=== PATIENT | female | born 1950 | race Caucasian/White ===

== ENCOUNTER → 2016-05-25 | Outpatient (CLI) | payer OTHER, MEDICARE ==
[2016-05-25 09:54] LABS: CHLORIDE,CL 105 mmol/L (98-110); SODIUM,NA 136 mmol/L (136-146)
== END ==
LOC: MW.CHFP 08:57
PROVIDERS: ATTEND Nurse Practitioner Family
DX: Z00.00 Encounter for general adult medical examination without abnormal findings (principal); E78.00 Pure hypercholesterolemia, unspecified; I10 Essential (primary) hypertension
CPT/HCPCS: 36415; 80053; 80061; 84443

== ENCOUNTER → 2016-07-06 | Outpatient (CLI) | payer OTHER, MEDICARE ==
--- NOTE | 2016-07-22 14:11 | US ---
EXAMINATION: Left digital diagnostic mammogram and targeted ultrasound. HISTORY: Abnormal screening. A comparison report port was obtained dated 07/09/2012, however no image s were provided. FINDINGS: Spot magnification images were obtained in the CC and MLO projections of the left breast. These demonstrates several coarse dystrophic calcifications within the upper outer left breast. Th ere is a clip noted within this region. Targeted ultrasound evaluation of this area demonstrates no suspicious mass or fluid collection. No abnormal color Doppler flow is noted. The previous report mentioned this area as being sampled. Ther e are, however, no comparisons to demonstrate stability and no pathology report is provided. Follo w-up may be beneficial to demonstrate stability. IMPRESSION: BI-RADS category III - probably benign. Followup in 6 months with a left breast diagnos tic study is recommended. THE FALSE-NEGATIVE RATE OF MAMMOGRAM IS APPROXIMATELY 10%. MANAGEMENT OF A PALPABLE ABNORMALITY MUST BE BASED UPON CLINICAL GROUNDS. SENSITIVITY FOR DETECTION OF ABNORMALITIES IN DENSE BREASTS IS LOW. NOTE: A letter will be sent to the patient regarding findings.
== END | disposition home or self-care (01) ==
LOC: MW.MAM 13:46
PROVIDERS: ATTEND Obstetrics & Gynecology
DX: R92.8 Other abnormal and inconclusive findings on diagnostic imaging of breast (principal)
CPT/HCPCS: 76642; G0206